=== PATIENT | female | born 1955 | race Caucasian/White ===

== ENCOUNTER 2017-03-21 13:40 | Emergency (ER) | payer OTHER ==
[2017-03-21 14:22] LABS: BASOPHILS 0.2 % (0-2); HEMOGLOBIN 15.3 g/dL (12-16); IMMATURE GRANULOCYTES 0.2 % (0-5); LYMPHOCYTES 17.4 % (15-50); MCH 31.2 pg (26.0-34.0); MCV 91.8 fL (80.0-100.0); MEAN PLATELET VOLUME 10.1 fL (7.4-10.4); MONOCYTES 8.4 % (2-11); NEUTROPHILS 72.8 % (40-80); PLATELET COUNT 149 10x3/uL (130-400); RDW 13.7 % (11.5-14.5)
[2017-03-21 14:41] LABS: APPEARANCE CLOUDY (CLEAR); COLOR YELLOW (YELLOW); SPECIFIC GRAVITY 1.015 (1.005-1.020)
[2017-03-21 14:42] LABS: BILIRUBIN NEGATIVE (NEGATIVE); GLUCOSE NEGATIVE (NEGATIVE); KETONE NEGATIVE (NEGATIVE); LEUKOCYTE ESTERASE 2+ (NEGATIVE); NITRITE POSITIVE (NEGATIVE); PROTEIN NEGATIVE (NEGATIVE); UROBILINOGEN NORMAL (NORMAL)
[2017-03-21 14:43] LABS: BACTERIA MODERATE /hpf (NONE SEEN); MUCUS <1+ /lpf (NONE SEEN); WHITE CELLS - URINE 25-50 /hpf (0-5)
[2017-03-21 14:47] LABS: ANION GAP 17.3 mmol/L (8-16); BILIRUBIN - TOTAL 0.59 mg/dL (0.2-1.3); CALCIUM 9.3 mg/dL (8.5-10.1); CARBON DIOXIDE 17.6 mmol/L (21.0-32.0); POTASSIUM - SERUM 3.9 mmol/L (3.5-5.1); PROTEIN - SERUM 7.6 g/dL (6.4-8.2)
[2017-03-23 16:12] VITALS: BMI 28.2
== END 2017-03-21 20:40 | disposition home or self-care (01) ==
LOC: D.ER 13:40
PROVIDERS: Emergency Medicine
DX: N39.0 Urinary tract infection, site not specified (principal); F41.9 Anxiety disorder, unspecified; F32.9 Major depressive disorder, single episode, unspecified; F98.8 Other specified behavioral and emotional disorders with onset usually occurring in childhood and adolescence; N81.10 Cystocele, unspecified

== ENCOUNTER 2017-03-23 15:30 | Observation (INO) | payer OTHER ==
[~2017-03-23] VITALS: Ht 157.5 cm; Wt 70.0 kg
--- NOTE | ~2017-03-23 | OP ---
PATIENT NAME: NIURKA SANCHEZ MEDICAL RECORD: [id number] :55 LOCATION:[facility] ADMISSION DATE:03/23/17 SURGEON: SEVEN RUSSELL MD DATE OF OPERATION: 03/24/2017 PREOPERATIVE DIAGNOSIS: Acute cholecystitis. POSTOPERATIVE DIAGNOSIS: Acute cholecystitis. PROCEDURE: Laparoscopic cholecystectomy. SURGEON: Seven Russell MD REPORT OF PROCEDURE: The patient's abdomen was prepped and draped in sterile fashion. A cutdown was made on the superior aspect of the umbilicus, 0 Vicryls were placed on the fascia bilaterally and the fascia was incised with a 15-blade. I then bluntly entered the peritoneal cavity and placed a 12-mm Renay port. Under direct visualization, a 5 mm trocar was placed in the epigastrium and 2 more 5-mm trocars were placed in the right subcostal region. The gallbladder was grasped and elevated. There was noted to be a lot of inflammatory changes along with some distention and swelling. The gallbladder was aspirated and there was initially return of clear fluid followed by some bilious fluid, this made grasping more accessible. We then dissected down around the inflammatory tissue and we were able to dissect out the cystic artery and cystic duct and these were clipped proximally and distally and ligated in standard fashion. The gallbladder was then taken off the liver bed using electrocautery and placed into an EndoCatch bag. Any bleeding from the liver bed was then treated with electrocautery. At the conclusion of the case, we saw no evidence of any bile leakage and no sign of any bleeding. At this point, the ports and insufflation were then removed and the gallbladder was taken out through the umbilicus. The umbilical fascia was closed with interrupted 0 Vicryls times 3. The wounds were irrigated out with normal saline and infused with 10 mL of 0.25% Marcaine with epinephrine. The skin incisions were all closed with subcutaneous 5-0 Monocryl and dressed appropriately. COMPLICATIONS: None. CONDITION: Stable. ANESTHESIA: General endotracheal and local. BLOOD LOSS: 50 mL. TRANSINT:[id number] Voice Confirmation ID: [id number] DOCUMENT ID: [id number] SEVEN RUSSELL MD CC: TANA DA SILVA [id number] DICTATION DATE: 03/24/17 1314 INSURANCE OFFICE MANAGER: 03/24/17 2240 ADM IN [place] [address] [place] [address]
--- NOTE | 2017-03-23 16:00 | NUR ---
RECEIVED TO ROOM 2230 VIA WC FROM ADMISSIONS. A/O X3. C/O ABDOMINAL DISCOMFORT AT THIS TIEM. WILL MONITOR. SKIN IS INTACT WITHOUT REDNESS. IV SITED TO LEFT FOREARM AFTER ONE ATTEMPT.
[2017-03-23 16:12] VITALS: Ht 157.5 cm; Wt 70.0 kg
[2017-03-23 17:30] LABS: BASOPHILS 0.1 % (0-2); EOSINOPHILS 0.1 % (0-7); HEMATOCRIT 46.8 % (36.0-48.0); HEMOGLOBIN 15.7 g/dL (12-16); IMMATURE GRANULOCYTES 0.3 % (0-5); LYMPHOCYTES 5.1 % (15-50); MCH 31.5 pg (26.0-34.0); MCHC 33.5 g/dL (31.0-37.0); MEAN PLATELET VOLUME 9.9 fL (7.4-10.4); MONOCYTES 8.5 % (2-11); NEUTROPHILS 85.9 % (40-80); PLATELET COUNT 169 10x3/uL (130-400); RBC 4.99 10x6/uL (4.00-5.40); RDW 13.7 % (11.5-14.5)
[2017-03-23 17:58] LABS: ALBUMIN 3.6 g/dL (3.4-5.0); ANION GAP 17.2 mmol/L (8-16); BILIRUBIN - TOTAL 1.35 mg/dL (0.2-1.3); CALCIUM 9.1 mg/dL (8.5-10.1); CARBON DIOXIDE 23.6 mmol/L (21.0-32.0); CREATININE - SERUM 1.3 mg/dL (0.6-1.3); POTASSIUM - SERUM 3.8 mmol/L (3.5-5.1)
[2017-03-23 18:02] LABS: MCV 93.8 fL (80.0-100.0); WBC 17.2 10x3/uL (4.8-10.8)
--- NOTE | 2017-03-23 18:30 | NUR ---
OFF UNIT VIA FOR CT OF ABDOMEN. NO CHANGES NOTED AT THIS TIEM. REPORTS GOOD RELIEF AFTER USE OF DILAUDID.
--- NOTE | 2017-03-23 19:26 | NUR ---
APPLIANCE TO OSTOMY LEAKING YET AGAIN. CHANGED PER STAFF. SKIN IS GETTING ANGRY AND REDDENED. WILL MONITOR.
[2017-03-23 20:00] VITALS: BP 134/69
[2017-03-23 23:36] VITALS: BP 134/69
[2017-03-24] VITALS: BP 127/66
--- NOTE | 2017-03-24 03:07 | NUR ---
RESTING QUIETLY. NO DISTRESS NOTED. CL IN REACH
[2017-03-24 04:00] VITALS: BP 146/85
--- NOTE | 2017-03-24 04:19 | NUR ---
EYES CLOSED RESPIRATIONS WITH EASE AND UNLABORED.
--- NOTE | 2017-03-24 05:16 | NUR ---
NO CHANGE IN ASSESSMENT. REMAINS NPO FOR OR. CL IN REACH.
[2017-03-24 05:36] LABS: BASOPHILS 0.1 % (0-2); EOSINOPHILS 0.7 % (0-7); HEMATOCRIT 45.4 % (36.0-48.0); HEMOGLOBIN 15.1 g/dL (12-16); IMMATURE GRANULOCYTES 0.3 % (0-5); LYMPHOCYTES 13.6 % (15-50); MCH 31.1 pg (26.0-34.0); MCHC 33.3 g/dL (31.0-37.0); MCV 93.6 fL (80.0-100.0); MEAN PLATELET VOLUME 10.4 fL (7.4-10.4); MONOCYTES 10.8 % (2-11); NEUTROPHILS 74.5 % (40-80); RBC 4.85 10x6/uL (4.00-5.40); RDW 13.8 % (11.5-14.5); WBC 16.6 10x3/uL (4.8-10.8)
[2017-03-24 05:43] LABS: PLATELET COUNT 238 10x3/uL (130-400)
[2017-03-24 06:07] LABS: ALBUMIN 3.1 g/dL (3.4-5.0); BILIRUBIN - TOTAL 0.93 mg/dL (0.2-1.3); CALCIUM 9.3 mg/dL (8.5-10.1); CARBON DIOXIDE 22.1 mmol/L (21.0-32.0); CREATININE - SERUM 1.3 mg/dL (0.6-1.3); PROTEIN - SERUM 7.6 g/dL (6.4-8.2)
[2017-03-24 06:09] LABS: ANION GAP 16.9 mmol/L (8-16)
--- NOTE | 2017-03-24 07:30 | NUR ---
PT AWAKE AND ALERT ORIENTED X 3 LUNGS CLAUDIA DODDLLY HAS NPO STATUS NOTED FOR OR TODAY WITH DR RUSSELL FOR CHOLECYSTECTOMY. CONSENTS SIGNED AND TO CHART WILL MONITOR AND AWAIT OR TEAM AND PREOP ORDERS
[2017-03-24 08:27] VITALS: BP 113/60
--- NOTE | 2017-03-24 13:20 | NUR ---
PT REMANS IN OR AT THIS TIME.
--- NOTE | 2017-03-24 13:42 | NUR ---
REPORT CALLED FROM PACU NURSE WILL AWAIT RETURN FROM RECOVERY
[2017-03-24 13:55] VITALS: BP 144/66
--- NOTE | 2017-03-24 14:00 | NUR ---
PT RETURNED TO ROOM POST OP LAP SITES X 5 NOTED ABDOMEN TENDER NON BLEEDING NOTED VITAL SIGNS WNL. SPOUSE AT SIDE.
--- NOTE | 2017-03-24 14:41 | NUR ---
PATIENT RESTING QUIETLY WITH HER EYES CLOSED. PATIENT AWAKENS EASILY TO VERBAL STIMULI. PATIENT DENEIS ANY PAIN OR NAUSEA AT PRESENT TIME. IV SITE PATENT WITHOUT ANY S/S OF INFECTION IN PATIENT'S LEFT FOREARM. NS INFUSING @ 100 ML/HR. BANDAIDS X4 NOTED TO PATIENT'S ABDOMEN WITH NO DRAINAGE NOTED. PATIENT DENIES ANY NEEDS AT PRESENT TIME. CALL LIGHT IN PATIENT'S REACH. WILL MONITOR PATIENT.
[2017-03-24 17:06] VITALS: BP 133/61
--- NOTE | 2017-03-24 18:50 | NUR ---
PT GIVEN PAIN MEDS PER SCHEDULED ORDER NO ACUTE DISTRESSN TOED VOICES ALL NEDS CALL LIGHT IN REACH UP AMBULATED TO BATHROOM VOIDED CLEAR YELLOW URINE SIDE RAILS UP X 2
[2017-03-24 20:00] VITALS: BP 101/58
--- NOTE | 2017-03-24 21:57 | NUR ---
AWAKE WITH NO COMPLAINTS VOICED. IV INFUSING TO LEFT FOREARM WITHOUT REDNESS OR EDEMA NOTED. CL IN REACH.
--- NOTE | 2017-03-24 23:30 | NUR ---
PRN DILAUDID GIVEN PER MAR FOR C/O ABD PAIN, REPOSITIONED IN BED FOR COMFORT, SR'S UP,CL IN REACH
[2017-03-25] VITALS: BP 109/53
[2017-03-25 04:00] VITALS: BP 104/52
--- NOTE | 2017-03-25 05:02 | NUR ---
NO CHANGE IN ASSESSMENT. CL IN REACH
[2017-03-25 06:31] LABS: BASOPHILS 0 % (0-2); EOSINOPHILS 0 % (0-7); HEMOGLOBIN 11.2 g/dL (12-16); IMMATURE GRANULOCYTES 0.2 % (0-5); LYMPHOCYTES 7.6 % (15-50); MCH 30.9 pg (26.0-34.0); MCHC 32.9 g/dL (31.0-37.0); MCV 93.7 fL (80.0-100.0); MEAN PLATELET VOLUME 10.3 fL (7.4-10.4); MONOCYTES 7.1 % (2-11); NEUTROPHILS 85.1 % (40-80); PLATELET COUNT 150 10x3/uL (130-400); RBC 3.63 10x6/uL (4.00-5.40); RDW 13.8 % (11.5-14.5); WBC 6.2 10x3/uL (4.8-10.8)
[2017-03-25 07:12] LABS: BILIRUBIN - TOTAL 0.2 mg/dL (0.2-1.3); CALCIUM 7.7 mg/dL (8.5-10.1); CARBON DIOXIDE 21.1 mmol/L (21.0-32.0); CREATININE - SERUM 1.1 mg/dL (0.6-1.3); PROTEIN - SERUM 5.7 g/dL (6.4-8.2)
[2017-03-25 07:16] LABS: ALBUMIN 2.1 g/dL (3.4-5.0); ANION GAP 13.8 mmol/L (8-16); POTASSIUM - SERUM 3.9 mmol/L (3.5-5.1)
--- NOTE | 2017-03-25 07:30 | NUR ---
A&O, DENIES NEEDS, BED LOWEST POSITION, CALL LIGHT IN REACH, WILL CONTINUE TO MONITOR
[2017-03-25 08:09] VITALS: BP 102/40
[2017-03-25] MEDS ORDERED: DILAUDID2 MG PO (08:37)
--- NOTE | 2017-03-25 09:27 | NUR ---
Patient Name: NIURKA SANCHEZ Admission Status: Elective Accout number: [id number] Admission Date: 03-23-2017 : 1955 Admission Diagnosis: Attending: PARVEEN Current LOS: 2 Anticipated DC Date: 03-25-2017 Planned Disposition: Home Primary Insurance: [employer] Discharge Planning Comments: CM MET WITH PATIENT REGARDING D/C NEEDS AND PLANS. PATIENT IS DISCHARGING TODAY - SPOUSE IS DRIVING HER HOME. PATIENT HAS 3 STEPS TO ENTER HER HOME AND 3 STEP DOWNS IN HOME. PATIENT STATED SHE IS INDEPENDENT WITH HER CARE AND HAS NO DME AT HOME. PATIENTS PCP IS DR. VAZQUEZ AND USES [facility]. PATIENT DENIED ANY NEEDS FOR DISCHARGE AND DID NOT WANT HOME HEALTH. CM WILL CONTINUE TO FOLLOW PATIENT WITH D/C NEEDS AND PLANS. PCP DR. VAZQUEZ [facility]- [phone] CANDACE (SPOUSE) [phone] [place] Weaver: Pamela Aguiar Is the patient Alert and Oriented? Yes 0 * How many steps to enter\exit or inside your home? 3 0 * PCP DR. VAZQUEZ 0 * Pharmacy [facility] 0 * Preadmission Environment Home with Family 0 * ADLs Independent 0 * Equipment None 0 * List name and contact numbers for known caregivers / representatives who currently or will assist patient after discharge: CANDACE [phone] 0 * Community resources currently utilized None 0 * Additional services required to return to the preadmission environment? Yes 0 * Can the patient safely return to the preadmission environment? Yes 0 * Has this patient been hospitalized within the prior 30 days at any hospital? No 0 Grand Total: 0
--- NOTE | 2017-03-25 12:00 | NUR ---
PT AOX4 RESP EVEN AND NONLABORED PT DENIES NEEDS AT THIS TIME PT HERE FOR LAP [facility] AND AFTER CARE. IV TO LEFT FOREARM PATENT AND INTACT SRX2 BED AT LOWEST SETTING CALL LIGHT WITHIN REACH WILL CONTINUE TO MONITOR
--- NOTE | 2017-03-25 12:13 | NUR ---
DISCHARGE INSTRUCTIONS GIVEN TO PATIENT AND , QUESTIONS REMOVED, IV REMOVED TIP INTACT, DISCHARGED PER WC WITH TIP INTACT
== END 2017-03-25 12:14 | disposition home or self-care (01) ==
LOC: D.MS 15:30 → OBSVTIME 15:30 → D.MS 15:30
PROVIDERS: Emergency Medicine; ADMIT Family Medicine
DX: K81.0 Acute cholecystitis (principal); N39.0 Urinary tract infection, site not specified; E87.6 Hypokalemia; E78.5 Hyperlipidemia, unspecified

== ENCOUNTER → 2018-11-24 18:04 | Outpatient (CLI) | payer MEDICARE ==
[2017-03-23 16:12] VITALS: BMI 28.2
[~2018-11-24 18:04] MED LIST: DILAUDID2 MG PO
== END | disposition home or self-care (01) ==
LOC: D.MAMMO 16:15
DX: Z12.31 Encounter for screening mammogram for malignant neoplasm of breast (principal)